=== PATIENT | male | born 1960 | race African-American/Black ===

== ENCOUNTER 2016-08-16 11:31 | Inpatient (IN) | payer OTHER ==
[2016-08-16 12:09] VITALS: BMI 24.4
--- NOTE | 2016-08-16 12:53 | HP ---
CIWA Score - CIWA Score Nausea/Vomitin Muscle Tremors: 3 Anxiety: 2 Agitation: 1-Slight > Activity Paroxysmal Sweats: 2 Orientation: 0-Oriented Tacttile Disturbances: 2-Mild Itch/Numbness/Burn Auditory Disturbances: 1-Very Mild Visual Disturbances: 2-Mild Sensitivity Headache: 0-None Present CIWA-Ar Total Score: 18 Admission ROS BHS - HPI Chief Complaint: "I am here to try to stop drinking and using drugs." Allergies/Adverse Reactions: Allergies Allergy/AdvReac Type Severity Reaction Status Date / Time No Known Allergies Allergy Verified 08/16/16 12:04 History of Present Illness: Pt. is a 56 YO male here to Detox from Alcohol. History of previous Detox admissions. Pt. also uses K2 on a daily basis and occasionally uses Crack Cocaine. Exam Limitations: No Limitations - Ebola screening Have you traveled outside of the country in the last 21 days: No Have you had contact with anyone from an Ebola affected area: No Have you been sick,other than usual withdrawal symptoms: No Do you have a fever: No - Review of Systems Constitutional: Diaphoresis, Malaise, Night Sweats EENT: reports: Blurred Vision, Tinnitus (Occasional - bilateral.), Nose Congestion, Sinus Pressure, Dental Problems (Multiple cavities.) Respiratory: reports: Cough, SOB with Exertion Cardiac: reports: No Symptoms Reported GI: reports: Diarrhea, Nausea, Vomiting : reports: No Symptoms Reported Musculoskeletal: reports: Joint Pain (Pain in Left hip.) Integumentary: reports: No Symptoms Reported Neuro: reports: Numbness (Occasional in Left Upper Back.), Tingling (Occasional in Left Upper Back.), Tremors Endocrine: reports: No Symptoms Reported Hematology: reports: No Symptoms Reported Psychiatric: reports: Judgement Intact, Mood/Affect Appropiate, Orientated x3, Anxious, Depressed Other Systems: Reviewed and Negative Patient History - Patient Medical History Hx Anemia: No Hx Asthma: No Hx Chronic Obstructive Pulmonary Disease (COPD): No Hx Cancer: No Hx Cardiac Disorders: No Hx Congestive Heart Failure: No Hx Hypertension: No Hx Hypercholesterolemia: No Hx Pacemaker: No HX Cerebrovascular Accident: No Hx Seizures: No Hx Dementia: No Hx Diabetes: No Hx Gastrointestinal Disorders: No Hx Liver Disease: No Hx Genitourinary Disorders: No Hx Sexually Transmitted Disorders: Yes (gonerrhea and syphillis 1979; Treated.) Hx Renal Disease (ESRD): No Hx Thyroid Disease: No Hx Human Immunodeficiency Virus (HIV): No (LAST TESTED: 2008: NEGATIVE.) Hx Hepatitis C: No (Never Tested.) Hx Depression: Yes Hx Suicide Attempt: No Hx Bipolar Disorder: No Hx Schizophrenia: Yes (On meds.) - Patient Surgical History Past Surgical History: No Hx Neurologic Surgery: No Hx Cataract Extraction: No Hx Cardiac Surgery: No Hx Lung Surgery: No Hx Breast Surgery: No Hx Breast Biopsy: No Hx Abdominal Surgery: No Hx Appendectomy: No Hx Cholecystectomy: No Hx Genitourinary Surgery: No Hx Section: No Hx Orthopedic Surgery: No Anesthesia Reaction: No - PPD History Previous Implant?: Yes ((+) PPD hx.) Documented Results: Positive w/o proof Implanted On Prior R Admission?: No PPD to be Administered?: No - Reproductive History Patient is a Female of Child Bearing Age (11 -55 yrs old): No (PATIENT IS MALE.) - Smoking Cessation Smoking history: Current every day smoker Have you smoked in the past 12 months: Yes Aproximately how many cigarettes per day: 40 Cigars Per Day: 1 Hx Chewing Tobacco Use: No Initiated information on smoking cessation: Yes 'Breaking Loose' booklet given: 08/16/16 (GIVEN ON UNIT.) - Substance & Tx. History Hx Alcohol Use: Yes Hx Substance Use: Yes Substance Use Type: Marijuana Hx Substance Use Treatment: Yes (Previous Detox Admissions.) - Substances Abused Alcohol Route: Oral Frequency: Daily Amount used: (4) 40OZ bEER, 2 PINTS EJ JYOTI Age of first use: 10 Date of Last Use: 08/15/16 Marijuana/Hashish Route: Smoking Frequency: Daily Amount used: 1-2 Joints (K2) Age of first use: 53 Date of Last Use: 08/15/16 Family Disease History - Family Disease History Family Disease History: Diabetes: Mother (Arthritis.), Brother, Other: Father ( alcohol,), Mother Admission Physical Exam S - Vital Signs Vital Signs: Vital Signs - 24 hr 08/16/16 12:07 Temperature 97.9 F Pulse Rate 92 H Respiratory 18 Rate Blood Pressure 129/74 - Physical General Appearance: Yes: No Apparent Distress, Nourished, Appropriately Dressed , Tremorous HEENTM: Yes: Hearing grossly Normal, Normocephalic, Normal Voice, SHELLY, Pharynx Normal Respiratory: Yes: Chest Non-Tender, Lungs Clear, No Respiratory Distress Neck: Yes: No masses,lesions,Nodules, Supple, Trachea in good position Breast: Yes: Breast Exam Deferred Cardiology: Yes: Regular Rhythm, Regular Rate, S1, S2 Abdominal: Yes: Normal Bowel Sounds, Non Tender, Flat Genitourinary: Yes: Within Normal Limits Back: Yes: Normal Inspection Musculoskeletal: Yes: full range of Motion, Gait Steady Extremities: Yes: Normal Inspection, Normal Range of Motion, Non-Tender, Tremors Neurological: Yes: Fully Oriented, Alert, Normal Mood/Affect, Normal Response Integumentary: Yes: Normal Color, Dry, Warm Lymphatic: Yes: Within Normal Limits - Diagnostic (1) Nicotine dependence Current Visit: Yes Status: Chronic (2) Alcohol dependence with uncomplicated withdrawal Current Visit: Yes Status: Acute (3) Cannabis dependence Current Visit: Yes Status: Acute Cleared for Admission [facility] - Detox or Rehab [facility] Level of Care: Medically Managed Detox Regimen/Protocol: Librium (PATIENT ADVISED TO FOLLOW-UP WITH TODDLER LEAD TEACHER / REHAB MEDICAL PROIVDER AFTER DETOX DISCHARGE FOR GENERAL MEDICAL EVALUATION.) [facility] Breath Alcohol Content Breath Alcohol Content: 0 Urine Drug Screen - Results Drug Screen Negative: Yes
[2016-08-16] MEDS ORDERED: MAGNESIUM HYDROX 2400MG/30ML ORAL SUSPENSION 30 ML CUP PO PRN (13:30)
[2016-08-16] MEDS ORDERED: chlordiazePOXIDE HCL 25 MG CAPSULE PO PRN (13:30)
[2016-08-16] MEDS ORDERED: chlordiazePOXIDE HCL 25 MG CAPSULE PO ONE (13:30)
[2016-08-16] MEDS ORDERED: guaiFENesin/D-METHORPHAN HB 10 ML UNIT-DOSE CUPS PO PRN (13:30)
[2016-08-16] MEDS ORDERED: MENTHOL/PHENOL 1 EACH UD MM PRN (13:30)
[2016-08-16] MEDS ORDERED: P-EPHED 60MG/TRIPROLIDI 2.5MG TABLET PO PRN (13:30)
[2016-08-16] MEDS ORDERED: ACETAMINOPHEN 325 MG TABLET (FP) PO PRN (13:30)
[2016-08-16] MEDS ORDERED: MAG HYDROX/AL HYDROX/SIMETH 30 ML UNIT-DOSE CUP PO PRN (13:30)
[2016-08-16] MEDS ORDERED: LOPERAMIDE HCL 2 MG CAPSULE PO PRN (13:30)
[2016-08-16] MEDS ORDERED: IBUPROFEN 400 MG TABLET (FP) PO PRN (13:30)
[2016-08-16] MEDS ORDERED: MAGNESIUM CITRATE 300 ML BOTTLE PO PRN (13:30)
[2016-08-16] MEDS: chlordiazePOXIDE HCL 25 MG CAPSULE PO SCH ×2 (17:29→22:13)
[2016-08-16] MEDS: NICOTINE POLACRILEX 4 MG GUM BC PRN ×2 (17:31→21:38)
[2016-08-16 17:34] LABS: URINE APPEARANCE CLEAR; URINE BILIRUBIN NEGATIVE (NEGATIVE); URINE BLOOD NEGATIVE (NEGATIVE); URINE COLOR STRAW; URINE GLUCOSE (UA) NEGATIVE (NEGATIVE); URINE KETONE NEGATIVE (NEGATIVE); URINE LEUK ESTERASE NEGATIVE (NEGATIVE); URINE NITRITE NEGATIVE (NEGATIVE); URINE PROTEIN NEGATIVE (NEGATIVE); URINE UROBILINOGEN NEGATIVE E.U./dl (0.2-1.0)
[2016-08-16] MEDS: THIAMINE HCL 100 MG TABLET (FP) PO SCH (22:13)
[2016-08-16] MEDS: diphenhydrAMINE HCL 50 MG CAPSULE PO PRN (22:13)
[2016-08-17] MEDS: NICOTINE POLACRILEX 4 MG GUM BC PRN ×8 (01:12→22:13)
[2016-08-17] MEDS: hydrOXYzine PAMOATE 50 MG CAPSULE (FP) PO PRN (02:23)
[2016-08-17] MEDS: chlordiazePOXIDE HCL 25 MG CAPSULE PO SCH ×4 (05:18→22:12)
--- NOTE | 2016-08-17 09:25 | EKG ---
Test Reason : Blood Pressure : / mmHG Vent. Rate : 082 BPM Atrial Rate : 082 BPM P-R Int : 164 ms QRS Dur : 104 ms QT Int : 418 ms P-R-T Axes : 067 064 017 degrees QTc Int : 488 ms NORMAL SINUS RHYTHM VOLTAGE CRITERIA FOR LEFT VENTRICULAR HYPERTROPHY T WAVE ABNORMALITY, CONSIDER LATERAL ISCHEMIA VS REPOLARIZATION ABNORMALITIES PROLONGED QT ABNORMAL ECG NO PREVIOUS ECGS AVAILABLE Confirmed by SERGE CALDERÓN MD ([id number]) on 08/17/2016 9:24:54 AM Referred By: Confirmed By:SERGE CALDERÓN MD
[2016-08-17 09:58] LABS: ALBUMIN 3.3 g/dl (3.4-5.0); ANION GAP 5 (8-16); CALCIUM 8.6 mg/dL (8.5-10.1); CO2 32 mmol/L (21-32)
--- NOTE | 2016-08-17 10:00 | CONSULT ---
[facility] Psychiatric Consult - Data Date of interview: 08/17/16 Admission source: [facility] Identifying data: This is 56 years ols AA male,father of 2 resides in [place],supported by [facility].Patient admitted to [address] [place] [address] for Alcohol,Cannabis and K2 dependence. Substance Abuse History: REports drinking beer,pint of jesse since 10 yo.Cannabis including K2 since 53 years old(2 joints daily). Medical History: H/O Alcohol induced syncope. Psychiatric History: patient sees psychiatrist since 1996 when he was admitted to [facility] after DOD.Patient was dx with Schizophrenia and started on Thorazine.He reports more that 15 psychiatric hospitalizations.Most recent admisssion was about 2 months ago.Patient has no regular psychiatric follow up , obtaining meds from local ER.Current medications:Li 600 mg po bid and Zyprexa 10 mg po bid. Physical/Sexual Abuse/Trauma History: denies Mental Status Exam - Mental Status Exam Alert and Oriented to: Time, Place, Person Cognitive Function: Grossly Intact Patient Appearance: Unkempt Mood: Sad, Anxious Affect: Mood Congruent, Labile Patient Behavior: Cooperative Speech Pattern: Clear Voice Loudness: Normal Thought Process: Goal Oriented Thought Disorder: Being Controlled Hallucinations: Denies Suicidal Ideation: Denies Homicidal Ideation: Denies Insight/Judgement: Fair Sleep: Fair Appetite: Fair Muscle strength/Tone: Normal Gait/Station: Normal Psychiatric Findings - Problem List ([place] 1, 2,3) (1) Cannabis dependence Current Visit: Yes Status: Chronic (2) Nicotine dependence Current Visit: Yes Status: Chronic (3) Alcohol dependence Current Visit: No Status: Active (4) Weight decreased Current Visit: Yes Status: Active (5) Paranoid schizophrenia Current Visit: Yes Status: Chronic - Initial Treatment Plan Initial Treatment Plan: Continue Zyprexa 0 mg po bid and Li 600 mg po bid. Will monitor porgress.
[2016-08-17 10:04] LABS: ALK PHOS 71 U/L (45-117); BILIRUBIN,TOTAL 0.5 mg/dL (0.2-1.0); GLUCOSE,RANDOM 123 mg/dL (74-106); SGOT/AST 15 U/L (15-37); SGPT/ALT 23 U/L (12-78); TOT PROT 6.2 g/dl (6.4-8.2)
--- NOTE | 2016-08-17 10:04 | PN ---
S CIWA - CIWA Score Nausea/Vomitin-No Nausea/No Vomiting Muscle Tremors: 3 Anxiety: 4-Mod. Anxious/Guarded Agitation: 4-Moderately Restless Paroxysmal Sweats: 3 Orientation: 0-Oriented Tacttile Disturbances: 1-Very Mild Itch/Numbness Auditory Disturbances: 0-None Visual Disturbances: 0-None Headache: 0-None Present CIWA-Ar Total Score: 15 BHS Progress Note (SOAP) Subjective: ANXIETY,TREMORS,SWEATING,INTERRUPTED SLEEP,RESTLESS. Objective: 08/17/16 10:03 Vital Signs - 8 hr 08/17/16 08/17/16 03:30 06:35 Temperature 97.6 F Pulse Rate 78 Respiratory 18 18 Rate Blood Pressure 107/72 Laboratory Last Values Urine Color Straw 08/16/16 11:00 Urine Appearance Clear 08/16/16 11:00 Urine pH 8.0 (5.0-8.0) 08/16/16 11:00 Ur Specific [place] 1.012 (1.001-1.035) 08/16/16 11:00 Urine Protein Negative (NEGATIVE) 08/16/16 11:00 Urine Glucose (UA) Negative (NEGATIVE) 08/16/16 11:00 Urine Ketones Negative (NEGATIVE) 08/16/16 11:00 Urine Blood Negative (NEGATIVE) 08/16/16 11:00 Urine Nitrite Negative (NEGATIVE) 08/16/16 11:00 Urine Bilirubin Negative (NEGATIVE) 08/16/16 11:00 Urine Urobilinogen Negative E.U./dl (0.2-1.0) 08/16/16 11:00 Ur Leukocyte Esterase Negative (NEGATIVE) 08/16/16 11:00 LABS NOTED Assessment: 08/17/16 10:03 WITHDRAWAL SX. Plan: CONTINUE DETOX
[2016-08-17] MEDS: PRENATAL VITAMINS W/ FOLIC ACID TABLET (FP) PO SCH (10:13)
[2016-08-17 10:37] LABS: MCH 23.1 pg (25.7-33.7); MCHC 32.5 g/dl (32.0-35.9); MEAN PLT VOLUME 10.1 fl (7.5-11.1); PLATELET COUNT 144 K/MM3 (134-434); RDW 16.4 % (11.9-15.9)
[2016-08-17] MEDS: LITHIUM CARBONATE 300 MG CAPSULE (FP) PO SCH ×2 (10:57→22:12)
[2016-08-17] MEDS: OLANZapine 10 MG TABLET PO SCH ×2 (10:58→22:12)
[2016-08-17] MEDS: THIAMINE HCL 100 MG TABLET (FP) PO SCH (22:12)
[2016-08-17] MEDS: diphenhydrAMINE HCL 50 MG CAPSULE PO PRN (22:13)
[2016-08-18] MEDS: NICOTINE POLACRILEX 4 MG GUM BC PRN ×7 (02:49→21:04)
[2016-08-18] MEDS: chlordiazePOXIDE HCL 25 MG CAPSULE PO SCH ×2 (05:25→10:17)
[2016-08-18] MEDS: LITHIUM CARBONATE 300 MG CAPSULE (FP) PO SCH ×2 (10:16→22:35)
[2016-08-18] MEDS: OLANZapine 10 MG TABLET PO SCH ×2 (10:16→22:36)
[2016-08-18] MEDS: PRENATAL VITAMINS W/ FOLIC ACID TABLET (FP) PO SCH (10:17)
--- NOTE | 2016-08-18 11:30 | PN ---
S CIWA - CIWA Score Nausea/Vomitin-No Nausea/No Vomiting Muscle Tremors: 3 Anxiety: 3 Agitation: 4-Moderately Restless Paroxysmal Sweats: 3 Orientation: 0-Oriented Tacttile Disturbances: 0-None Auditory Disturbances: 0-None Visual Disturbances: 0-None Headache: 0-None Present CIWA-Ar Total Score: 13 BHS Progress Note (SOAP) Subjective: ANXIETY,TREMORS,SWEATING,INTERRUPTED SLEEP,RESTLESS. Objective: 08/18/16 11:26 Vital Signs - 8 hr 08/18/16 08/18/16 06:17 09:18 Temperature 96.5 F L 96.2 F L Pulse Rate 81 83 Respiratory 18 18 Rate Blood Pressure 102/67 115/75 Laboratory Tests 08/16/16 08/17/16 08/17/16 11:00 08:00 08:00 WBC 7.0 RBC 5.26 Hgb 12.1 Hct 37.4 MCV 71.0 L MCHC 32.5 RDW 16.4 H Plt Count 144 MPV 10.1 Sickle Cell Screen Sodium 139 Potassium 4.3 Chloride 102 Carbon Dioxide 32 Anion Gap 5 L BUN 12 D Creatinine 1.0 Creat Clearance w eGFR > 60 Random Glucose 123 H D Calcium 8.6 Total Bilirubin 0.5 D AST 15 D ALT 23 D Alkaline Phosphatase 71 Total Protein 6.2 L Albumin 3.3 L Urine Color Straw Urine Appearance Clear Urine pH 8.0 Ur Specific [place] 1.012 Urine Protein Negative Urine Glucose (UA) Negative Urine Ketones Negative Urine Blood Negative Urine Nitrite Negative Urine Bilirubin Negative Urine Urobilinogen Negative Ur Leukocyte Esterase Negative RPR Titer 08/17/16 08/17/16 08:00 08:00 WBC RBC Hgb Hct MCV MCHC RDW Plt Count MPV Sickle Cell Screen Negative Sodium Potassium Chloride Carbon Dioxide Anion Gap BUN Creatinine Creat Clearance w eGFR Random Glucose Calcium Total Bilirubin AST ALT Alkaline Phosphatase Total Protein Albumin Urine Color Urine Appearance Urine pH Ur Specific [place] Urine Protein Urine Glucose (UA) Urine Ketones Urine Blood Urine Nitrite Urine Bilirubin Urine Urobilinogen Ur Leukocyte Esterase RPR Titer Nonreactive LABS NOTED Assessment: 08/18/16 11:30 WITHDRAWAL SX. Plan: CONTINUE DETOX
[2016-08-18] MEDS: chlordiazePOXIDE 5 MG CAPSULE PO SCH ×2 (17:11→22:36)
[2016-08-18] MEDS: hydrOXYzine PAMOATE 50 MG CAPSULE (FP) PO PRN (17:39)
[2016-08-18] MEDS: THIAMINE HCL 100 MG TABLET (FP) PO SCH (22:35)
[2016-08-18] MEDS: diphenhydrAMINE HCL 50 MG CAPSULE PO PRN (22:38)
[2016-08-19] MEDS: NICOTINE POLACRILEX 4 MG GUM BC PRN ×9 (02:35→22:19)
[2016-08-19] MEDS: chlordiazePOXIDE 5 MG CAPSULE PO SCH ×2 (05:26→10:20)
[2016-08-19] MEDS: PRENATAL VITAMINS W/ FOLIC ACID TABLET (FP) PO SCH (10:20)
[2016-08-19] MEDS: LITHIUM CARBONATE 300 MG CAPSULE (FP) PO SCH ×2 (10:21→22:16)
[2016-08-19] MEDS: OLANZapine 10 MG TABLET PO SCH ×2 (10:21→22:16)
[2016-08-19] MEDS: hydrOXYzine PAMOATE 50 MG CAPSULE (FP) PO PRN (13:58)
--- NOTE | 2016-08-19 15:23 | PN ---
BHS Progress Note (SOAP) Subjective: SWEATING,INTERRUPTED SLEEP,RESTLESS Objective: 08/19/16 15:22 Vital Signs - 8 hr 08/19/16 08/19/16 09:49 14:17 Temperature 98.1 F 98.8 F Pulse Rate 84 81 Respiratory 18 18 Rate Blood Pressure 112/70 112/76 Laboratory Last Values WBC 7.0 K/mm3 (4.0-10.0) 08/17/16 08:00 RBC 5.26 M/mm3 (4.00-5.60) 08/17/16 08:00 Hgb 12.1 GM/dL (11.7-16.9) 08/17/16 08:00 Hct 37.4 % (35.4-49) 08/17/16 08:00 MCV 71.0 fl (80-96) L 08/17/16 08:00 MCHC 32.5 g/dl (32.0-35.9) 08/17/16 08:00 RDW 16.4 % (11.9-15.9) H 08/17/16 08:00 Plt Count 144 K/MM3 (134-434) 08/17/16 08:00 MPV 10.1 fl (7.5-11.1) 08/17/16 08:00 Sickle Cell Screen Negative (NEGATIVE) 08/17/16 08:00 Sodium 139 mmol/L (136-145) 08/17/16 08:00 Potassium 4.3 mmol/L (3.5-5.1) 08/17/16 08:00 Chloride 102 mmol/L (98-107) 08/17/16 08:00 Carbon Dioxide 32 mmol/L (21-32) 08/17/16 08:00 Anion Gap 5 (8-16) L 08/17/16 08:00 BUN 12 mg/dL (7-18) D 08/17/16 08:00 Creatinine 1.0 mg/dL (0.7-1.3) 08/17/16 08:00 Creat Clearance w eGFR > 60 (>60) 08/17/16 08:00 Random Glucose 123 mg/dL (74-106) H D 08/17/16 08:00 Calcium 8.6 mg/dL (8.5-10.1) 08/17/16 08:00 Total Bilirubin 0.5 mg/dL (0.2-1.0) D 08/17/16 08:00 AST 15 U/L (15-37) D 08/17/16 08:00 ALT 23 U/L (12-78) D 08/17/16 08:00 Alkaline Phosphatase 71 U/L (45-117) 08/17/16 08:00 Total Protein 6.2 g/dl (6.4-8.2) L 08/17/16 08:00 Albumin 3.3 g/dl (3.4-5.0) L 08/17/16 08:00 Urine Color Straw 08/16/16 11:00 Urine Appearance Clear 08/16/16 11:00 Urine pH 8.0 (5.0-8.0) 08/16/16 11:00 Ur Specific [place] 1.012 (1.001-1.035) 08/16/16 11:00 Urine Protein Negative (NEGATIVE) 08/16/16 11:00 Urine Glucose (UA) Negative (NEGATIVE) 08/16/16 11:00 Urine Ketones Negative (NEGATIVE) 08/16/16 11:00 Urine Blood Negative (NEGATIVE) 08/16/16 11:00 Urine Nitrite Negative (NEGATIVE) 08/16/16 11:00 Urine Bilirubin Negative (NEGATIVE) 08/16/16 11:00 Urine Urobilinogen Negative E.U./dl (0.2-1.0) 08/16/16 11:00 Ur Leukocyte Esterase Negative (NEGATIVE) 08/16/16 11:00 RPR Titer Nonreactive (NONREACTIVE) 08/17/16 08:00 LABS NOTED Assessment: 08/19/16 15:22 WITHDRAWAL SX. Plan: CONTINUE DETOX
[2016-08-19] MEDS: chlordiazePOXIDE HCL 10 MG CAPSULE PO SCH ×2 (17:45→22:17)
[2016-08-19] MEDS: THIAMINE HCL 100 MG TABLET (FP) PO SCH (22:16)
[2016-08-19] MEDS: diphenhydrAMINE HCL 50 MG CAPSULE PO PRN (22:17)
[2016-08-20] MEDS: NICOTINE POLACRILEX 4 MG GUM BC PRN ×3 (02:41→07:31)
[2016-08-20] MEDS: chlordiazePOXIDE HCL 10 MG CAPSULE PO SCH (05:59)
[2016-08-20 06:15] VITALS: BP 111/75; PULSE 77; TEMP 97.3
--- NOTE | 2016-08-20 10:29 | DS ---
[facility] Detox Discharge Summary Admission Date: 08/16/16 Discharge Date: 08/20/16 - History Present History: Alcohol Dependence, Cannabis Dependence Pertinent Past History: PARANOID SCHIZOPHRENIA - Physical Exam Results Vital Signs: Vital Signs Temperature 97.3 F L 08/20/16 06:15 Pulse Rate 77 08/20/16 06:15 Respiratory Rate 16 08/20/16 06:15 Blood Pressure 111/75 08/20/16 06:15 O2 Sat by Pulse Oximetry (%) Pertinent Admission Physical Exam Findings: WITHDRAWAL SX. Laboratory Last Values WBC 7.0 K/mm3 (4.0-10.0) 08/17/16 08:00 RBC 5.26 M/mm3 (4.00-5.60) 08/17/16 08:00 Hgb 12.1 GM/dL (11.7-16.9) 08/17/16 08:00 Hct 37.4 % (35.4-49) 08/17/16 08:00 MCV 71.0 fl (80-96) L 08/17/16 08:00 MCHC 32.5 g/dl (32.0-35.9) 08/17/16 08:00 RDW 16.4 % (11.9-15.9) H 08/17/16 08:00 Plt Count 144 K/MM3 (134-434) 08/17/16 08:00 MPV 10.1 fl (7.5-11.1) 08/17/16 08:00 Sickle Cell Screen Negative (NEGATIVE) 08/17/16 08:00 Sodium 139 mmol/L (136-145) 08/17/16 08:00 Potassium 4.3 mmol/L (3.5-5.1) 08/17/16 08:00 Chloride 102 mmol/L (98-107) 08/17/16 08:00 Carbon Dioxide 32 mmol/L (21-32) 08/17/16 08:00 Anion Gap 5 (8-16) L 08/17/16 08:00 BUN 12 mg/dL (7-18) D 08/17/16 08:00 Creatinine 1.0 mg/dL (0.7-1.3) 08/17/16 08:00 Creat Clearance w eGFR > 60 (>60) 08/17/16 08:00 Random Glucose 123 mg/dL (74-106) H D 08/17/16 08:00 Calcium 8.6 mg/dL (8.5-10.1) 08/17/16 08:00 Total Bilirubin 0.5 mg/dL (0.2-1.0) D 08/17/16 08:00 AST 15 U/L (15-37) D 08/17/16 08:00 ALT 23 U/L (12-78) D 08/17/16 08:00 Alkaline Phosphatase 71 U/L (45-117) 08/17/16 08:00 Total Protein 6.2 g/dl (6.4-8.2) L 08/17/16 08:00 Albumin 3.3 g/dl (3.4-5.0) L 08/17/16 08:00 Urine Color Straw 08/16/16 11:00 Urine Appearance Clear 08/16/16 11:00 Urine pH 8.0 (5.0-8.0) 08/16/16 11:00 Ur Specific [place] 1.012 (1.001-1.035) 08/16/16 11:00 Urine Protein Negative (NEGATIVE) 08/16/16 11:00 Urine Glucose (UA) Negative (NEGATIVE) 08/16/16 11:00 Urine Ketones Negative (NEGATIVE) 08/16/16 11:00 Urine Blood Negative (NEGATIVE) 08/16/16 11:00 Urine Nitrite Negative (NEGATIVE) 08/16/16 11:00 Urine Bilirubin Negative (NEGATIVE) 08/16/16 11:00 Urine Urobilinogen Negative E.U./dl (0.2-1.0) 08/16/16 11:00 Ur Leukocyte Esterase Negative (NEGATIVE) 08/16/16 11:00 RPR Titer Nonreactive (NONREACTIVE) 08/17/16 08:00 LABS NOTED - Treatment Hospital Course: Detox Protocol Followed, Detoxed Safely, Responded well, Discharged Condition Good, Rehab Referral Accepted - Medication Discharge Medications: Ambulatory Orders [place] Carbonate [Eskalith -] 600 mg PO BID 04/13/16 Olanzapine [Zyprexa -] 10 mg PO DAILY 08/16/16 Olanzapine [Zyprexa] 20 mg PO HS 08/16/16 [place] Carbonate [Eskalith -] 600 mg PO BID #120 capsule 08/17/16 Olanzapine [ZyPREXA -] 10 mg PO BID #60 tablet 08/17/16 - Diagnosis (1) Alcohol dependence with uncomplicated withdrawal Current Visit: Yes Status: Acute (2) Cannabis dependence Current Visit: Yes Status: Chronic (3) Nicotine dependence Current Visit: Yes Status: Chronic (4) Paranoid schizophrenia Current Visit: Yes Status: Chronic - AMA Did Patient Leave Against Medical Advice: No
== END 2016-08-20 09:15 | disposition home or self-care (01) | DRG 897 ==
LOC: YASAS 11:31 → Y3N 13:59
PROVIDERS: ADMIT Internal Medicine; ATTEND Internal Medicine
PROC: HZ2ZZZZ Detoxification Services for Substance Abuse Treatment (ICD-10-PCS; principal; 2016-08-16)
DX: F10.230 Alcohol dependence with withdrawal, uncomplicated (principal); F20.0 Paranoid schizophrenia; F12.20 Cannabis dependence, uncomplicated; F17.210 Nicotine dependence, cigarettes, uncomplicated; Z86.79 Personal history of other diseases of the circulatory system; Z87.898 Personal history of other specified conditions; Z87.438 Personal history of other diseases of male genital organs
CPT/HCPCS: 36415; 71020-TC; 80053; 81003; 85027; 85660; 86593; 93005; 93010

== ENCOUNTER 2016-10-02 12:42 | Inpatient (IN) | payer OTHER ==
[2016-10-02 19:02] VITALS: BMI 23.7
--- NOTE | 2016-10-02 20:43 | HP ---
CIWA Score - CIWA Score Nausea/Vomitin-Mild Nausea/No Vomiting Muscle Tremors: 4-Moderate,w/Arms Extend Anxiety: 4-Mod. Anxious/Guarded Agitation: 4-Moderately Restless Paroxysmal Sweats: 1-Minimal Palms Moist Orientation: 3-Disoriented Date>2 days Tacttile Disturbances: 0-None Auditory Disturbances: 0-None Visual Disturbances: 0-None Headache: 0-None Present CIWA-Ar Total Score: 17 Admission ROS BHS - HPI Chief Complaint: WITHDRAWAL SX Allergies/Adverse Reactions: Allergies Allergy/AdvReac Type Severity Reaction Status Date / Time No Known Allergies Allergy Verified 10/02/16 20:48 History of Present Illness: 56 YEARS OLD MALE WITH LONG HISTORY OF ALCOHOL NICOTINE DEPENDENCE, DENIES MEDICAL ISSUE HAS SCHIZOPHRENIA IS ADMITTED TO DETOX Exam Limitations: No Limitations - Ebola screening Have you traveled outside of the country in the last 21 days: No Have you had contact with anyone from an Ebola affected area: No Have you been sick,other than usual withdrawal symptoms: No Do you have a fever: No - Review of Systems Constitutional: Chills, Changes in sleep, Weight Stable EENT: reports: Dental Problems (POOR DENTITION), Other (READING EYE GLASSES) Respiratory: reports: SOB with Exertion Cardiac: reports: No Symptoms Reported GI: reports: Nausea, Poor Fluid Intake, Abdominal cramping : reports: No Symptoms Reported Musculoskeletal: reports: Joint Pain (LEFT SHOULDER) Integumentary: reports: No Symptoms Reported Neuro: reports: Tremors Endocrine: reports: No Symptoms Reported Hematology: reports: No Symptoms Reported Psychiatric: reports: Judgement Intact Other Systems: Reviewed and Negative Patient History - Patient Medical History Hx Anemia: No Hx Asthma: No Hx Chronic Obstructive Pulmonary Disease (COPD): No Hx Cancer: No Hx Cardiac Disorders: No Hx Congestive Heart Failure: No Hx Hypertension: No Hx Hypercholesterolemia: No Hx Pacemaker: No HX Cerebrovascular Accident: No Hx Seizures: No Hx Dementia: No Hx Diabetes: No Hx Gastrointestinal Disorders: No Hx Liver Disease: No Hx Genitourinary Disorders: No Hx Sexually Transmitted Disorders: Yes (gonerrhea and syphillis 1979; Treated.) Hx Renal Disease (ESRD): No Hx Thyroid Disease: No Hx Human Immunodeficiency Virus (HIV): No (LAST TESTED: 2008: NEGATIVE.) Hx Hepatitis C: No (Never Tested.) Hx Depression: No Hx Suicide Attempt: No Hx Bipolar Disorder: No Hx Schizophrenia: Yes (On meds.) - Patient Surgical History Past Surgical History: No Hx Neurologic Surgery: No Hx Cataract Extraction: No Hx Cardiac Surgery: No Hx Lung Surgery: No Hx Breast Surgery: No Hx Breast Biopsy: No Hx Abdominal Surgery: No Hx Appendectomy: No Hx Cholecystectomy: No Hx Genitourinary Surgery: No Hx Orthopedic Surgery: No - PPD History Previous Implant?: Yes Documented Results: Positive w/proof Implanted On Prior [facility] Admission?: No PPD to be Administered?: No - Smoking Cessation Smoking history: Current every day smoker Have you smoked in the past 12 months: Yes Aproximately how many cigarettes per day: 40 Cigars Per Day: 1 Hx Chewing Tobacco Use: No Initiated information on smoking cessation: Yes 'Breaking Loose' booklet given: 10/02/16 - Substance & Tx. History Hx Alcohol Use: Yes Hx Substance Use: No Substance Use Type: Alcohol Hx Substance Use Treatment: Yes - Substances Abused Alcohol Route: Oral Frequency: Daily Amount used: 40OZX6 BEER/ JYOTI PINT Age of first use: 10 Date of Last Use: 10/02/16 Family Disease History - Family Disease History Family Disease History: Diabetes: Mother (Arthritis.), Brother, Other: Father ( alcohol,), Mother Admission Physical Exam S - Vital Signs Vital Signs: Vital Signs - 24 hr 10/02/16 19:00 Temperature 96 F L Pulse Rate 84 Respiratory 20 Rate Blood Pressure 129/71 - Physical General Appearance: Yes: Appropriately Dressed, Mild Distress, Thin, Tremorous, Irritable, Sweating, Anxious HEENTM: Yes: Hearing grossly Normal, Normal ENT Inspection, Normocephalic, Normal Voice Respiratory: Yes: Chest Non-Tender, Lungs Clear, Normal Breath Sounds, No Respiratory Distress, No Accessory Muscle Use Neck: Yes: Supple, Trachea in good position Breast: Yes: Breasts Symetrical Cardiology: Yes: Regular Rhythm, Regular Rate, S1, S2 Abdominal: Yes: Non Tender, Soft Genitourinary: Yes: Within Normal Limits Back: Yes: Normal Inspection Musculoskeletal: Yes: full range of Motion, Gait Steady, Muscle Pain (LEFT SHOULDER) Extremities: Yes: Normal Range of Motion, Non-Tender, Tremors Neurological: Yes: Alert, Motor Strength 5/5, Normal Response, Depressed Affect Integumentary: Yes: Warm Lymphatic: Yes: Within Normal Limits - Diagnostic (1) Weight decreased Current Visit: Yes Status: Active (2) shizophrenia Current Visit: Yes Status: Suspected (3) Alcohol dependence with uncomplicated withdrawal Current Visit: Yes Status: Acute (4) Nicotine dependence Current Visit: Yes Status: Acute (5) Positive PPD, treated Current Visit: Yes Status: Resolved Cleared for Admission S - Detox or Rehab S Level of Care: Medically Managed Detox Regimen/Protocol: Librium S Breath Alcohol Content Breath Alcohol Content: 0 Urine Drug Screen - Results Drug Screen Negative: Yes
[2016-10-02] MEDS ORDERED: diphenhydrAMINE HCL 50 MG CAPSULE PO PRN (20:50)
[2016-10-02] MEDS ORDERED: ACETAMINOPHEN 325 MG TABLET (FP) PO PRN (20:50)
[2016-10-02] MEDS ORDERED: LOPERAMIDE HCL 2 MG CAPSULE PO PRN (20:50)
[2016-10-02] MEDS ORDERED: MAGNESIUM CITRATE 300 ML BOTTLE PO PRN (20:50)
[2016-10-02] MEDS ORDERED: IBUPROFEN 400 MG TABLET (FP) PO PRN (20:50)
[2016-10-02] MEDS ORDERED: guaiFENesin/D-METHORPHAN HB 10 ML UNIT-DOSE CUPS PO PRN (20:50)
[2016-10-02] MEDS ORDERED: MAG HYDROX/AL HYDROX/SIMETH 30 ML UNIT-DOSE CUP PO PRN (20:50)
[2016-10-02] MEDS ORDERED: MAGNESIUM HYDROX 2400MG/30ML ORAL SUSPENSION 30 ML CUP PO PRN (20:50)
[2016-10-02] MEDS ORDERED: P-EPHED 60MG/TRIPROLIDI 2.5MG TABLET PO PRN (20:50)
[2016-10-02] MEDS ORDERED: hydrOXYzine PAMOATE 50 MG CAPSULE (FP) PO PRN (20:50)
[2016-10-02] MEDS ORDERED: MENTHOL/PHENOL 1 EACH UD MM PRN (20:50)
[2016-10-02] MEDS ORDERED: chlordiazePOXIDE HCL 25 MG CAPSULE PO PRN (20:50)
[2016-10-02] MEDS ORDERED: COLLOIDAL OATMEAL 1 BAR EACH TP PRN (20:52)
[2016-10-02] MEDS: chlordiazePOXIDE HCL 25 MG CAPSULE PO SCH (22:33)
[2016-10-02] MEDS: THIAMINE HCL 100 MG TABLET (FP) PO SCH (22:34)
[2016-10-02] MEDS: NICOTINE POLACRILEX 4 MG GUM BC PRN (22:37)
[2016-10-02 23:13] LABS: URINE APPEARANCE CLEAR; URINE BILIRUBIN NEGATIVE (NEGATIVE); URINE BLOOD NEGATIVE (NEGATIVE); URINE COLOR LTYELLOW; URINE GLUCOSE (UA) NEGATIVE (NEGATIVE); URINE KETONE NEGATIVE (NEGATIVE); URINE LEUK ESTERASE NEGATIVE (NEGATIVE); URINE NITRITE NEGATIVE (NEGATIVE); URINE PROTEIN NEGATIVE (NEGATIVE); URINE UROBILINOGEN NEGATIVE E.U./dl (0.2-1.0)
[2016-10-02] MEDS: MINERAL OIL/PETROLAT/WATER TOPICAL CREAM 113 GM JAR TP SCH (23:50)
[2016-10-03] MEDS: chlordiazePOXIDE HCL 25 MG CAPSULE PO SCH ×4 (05:22→22:30)
[2016-10-03] MEDS: NICOTINE POLACRILEX 4 MG GUM BC PRN ×5 (06:29→22:31)
--- NOTE | 2016-10-03 10:12 | PN ---
S CIWA - CIWA Score Nausea/Vomitin Muscle Tremors: 3 Anxiety: 3 Agitation: 3 Paroxysmal Sweats: 1-Minimal Palms Moist Orientation: 0-Oriented Tacttile Disturbances: 1-Very Mild Itch/Numbness Auditory Disturbances: 1-Very Mild Visual Disturbances: 1-Very Mild Sensitivity Headache: 2-Mild CIWA-Ar Total Score: 18 S Progress Note (SOAP) Subjective: ALERT,IRRITABLE,ANXIOUS,INTERRUPTED SLEEP,TREMOR Objective: 10/03/16 10:07 Vital Signs Temperature 96.3 F L 10/03/16 06:25 Pulse Rate 73 10/03/16 06:25 Respiratory Rate 18 10/03/16 06:25 Blood Pressure 115/70 10/03/16 06:25 O2 Sat by Pulse Oximetry (%) EKG NSR INVERTED T IN 2,3,AVF,V3 TO V6 NO CHEST PAIN,NO SOB,NO DIZZINESS Laboratory Last Values Urine Color Ltyellow 10/02/16 21:09 Urine Appearance Clear 10/02/16 21:09 Urine pH 6.0 (5.0-8.0) D 10/02/16 21:09 Ur Specific [place] 1.017 (1.001-1.035) 10/02/16 21:09 Urine Protein Negative (NEGATIVE) 10/02/16 21:09 Urine Glucose (UA) Negative (NEGATIVE) 10/02/16 21:09 Urine Ketones Negative (NEGATIVE) 10/02/16 21:09 Urine Blood Negative (NEGATIVE) 10/02/16 21:09 Urine Nitrite Negative (NEGATIVE) 10/02/16 21:09 Urine Bilirubin Negative (NEGATIVE) 10/02/16 21:09 Urine Urobilinogen Negative E.U./dl (0.2-1.0) 10/02/16 21:09 Ur Leukocyte Esterase Negative (NEGATIVE) 10/02/16 21:09 LABS PENDING Assessment: 10/03/16 10:11 WITHDRAWAL SYMPTOM Plan: CONTINUE DETOX
[2016-10-03] MEDS: NICOTINE 21 MG/24 HOURS TOPICAL PATCH TD SCH (10:28)
[2016-10-03] MEDS: ASPIRIN 81 MG CHEWABLE TABLETS PO SCH (10:28)
[2016-10-03] MEDS: PRENATAL VITAMINS W/ FOLIC ACID TABLET (FP) PO SCH (10:28)
[2016-10-03 11:21] LABS: ALBUMIN 3.3 g/dl (3.4-5.0); ANION GAP 8 (8-16); CO2 29 mmol/L (21-32); GLUCOSE,RANDOM 125 mg/dL (74-106); SGOT/AST 12 U/L (15-37); SGPT/ALT 14 U/L (12-78)
[2016-10-03 11:23] LABS: ALK PHOS 85 U/L (45-117); BILIRUBIN,TOTAL 0.2 mg/dL (0.2-1.0); CALCIUM 8.3 mg/dL (8.5-10.1)
[2016-10-03 11:25] LABS: MCH 23.2 pg (25.7-33.7); MCHC 32.3 g/dl (32.0-35.9); MEAN CELL VOLUME 72.1 fl (80-96); PLATELET COUNT 121 K/MM3 (134-434); RDW 16.5 % (11.9-15.9); WHITE BLOOD COUNT 4.3 K/mm3 (4.0-10.0)
--- NOTE | 2016-10-03 15:52 | CONSULT ---
[facility] Psychiatric Consult - Data Date of interview: 10/03/16 Admission source: [facility] Identifying data: Readmission to [facility] for this 56 y/o AA male seeking detox treatment on for alcohol,cocaine (crack) and marijuana (K2) dependence.Patient is single without children,domiciled,unemployed and supported on SSI benefits. Substance Abuse History: - Smoking Cessation. Smoking history: Current every day smoker. Have you smoked in the past 12 months: Yes. Aproximately how many cigarettes per day: 40. Cigars Per Day: 1. Hx Chewing Tobacco Use: No. Initiated information on smoking cessation: Yes. 'Breaking Loose' booklet given : 10/02/16. - Substance & Tx. History. Hx Alcohol Use: Yes. Hx Substance Use : No. Substance Use Type: Alcohol. Hx Substance Use Treatment: Yes. - Substances Abused. Alcohol. Route: Oral. Frequency: Daily. Amount used: 40OZX6 BEER/ JYOTI PINT. Age of first use: 10. Date of Last Use: 10/02/16. Confirmed by the patient in this interview. Psychiatric History: First contact with Psychiatry was in 1996 (committment to [facility]) after a suicide attempt via overdose.DOD.Diagnosed with Schizophrenia.History of multiple psychiatric hospitalizations.Mr Lanza states that he does not go to [facility] clinics.He uses emergency room settings for refills of medications.Patient informs that he is currently on zyprexa 20 mg po hs (confirmed by pharmacy claims of 09/30/16). Physical/Sexual Abuse/Trauma History: Patient denies. Additional Comment: Drug Screen is negative. Mental Status Exam - Mental Status Exam Alert and Oriented to: Time, Place, Person Cognitive Function: Good Patient Appearance: Well Groomed Mood: Hopeful, Euthymic Affect: Normal Range Patient Behavior: Appropriate, Cooperative Speech Pattern: Clear Voice Loudness: Normal Thought Process: Goal Oriented Thought Disorder: Not Present Hallucinations: Denies Suicidal Ideation: Denies Homicidal Ideation: Denies Insight/Judgement: Poor Sleep: Well Appetite: Good Muscle strength/Tone: Normal Gait/Station: Normal Psychiatric Findings - Problem List ([place] 1, 2,3) (1) Alcohol dependence with uncomplicated withdrawal Current Visit: Yes Status: Acute (2) Cannabis dependence Current Visit: Yes Status: Acute (3) Nicotine dependence Current Visit: Yes Status: Acute (4) Paranoid schizophrenia Current Visit: Yes Status: Chronic - Initial Treatment Plan Initial Treatment Plan: Psychoeducation.Detoxification.Medication : zyprexa 20 mg po hs.Patient made aware of risk of metabolic syndrome,sedation and vascular issues.He agrees with this plan of care.Observation.No scripts needed at discharge.
[2016-10-03] MEDS: OLANZapine 10 MG TABLET PO SCH (22:29)
[2016-10-03] MEDS: THIAMINE HCL 100 MG TABLET (FP) PO SCH (22:30)
[2016-10-03] MEDS: MINERAL OIL/PETROLAT/WATER TOPICAL CREAM 113 GM JAR TP SCH (22:31)
[2016-10-04] MEDS: NICOTINE POLACRILEX 4 MG GUM BC PRN ×10 (00:42→21:36)
[2016-10-04] MEDS: chlordiazePOXIDE HCL 25 MG CAPSULE PO SCH ×3 (05:13→17:21)
[2016-10-04] MEDS: NICOTINE 21 MG/24 HOURS TOPICAL PATCH TD SCH (10:47)
[2016-10-04] MEDS: ASPIRIN 81 MG CHEWABLE TABLETS PO SCH (10:47)
[2016-10-04] MEDS: PRENATAL VITAMINS W/ FOLIC ACID TABLET (FP) PO SCH (10:47)
--- NOTE | 2016-10-04 11:15 | PN ---
[facility] CIWA - CIWA Score Nausea/Vomitin Muscle Tremors: 3 Anxiety: 3 Agitation: 2 Paroxysmal Sweats: 1-Minimal Palms Moist Orientation: 0-Oriented Tacttile Disturbances: 1-Very Mild Itch/Numbness Auditory Disturbances: 1-Very Mild Visual Disturbances: 1-Very Mild Sensitivity Headache: 2-Mild CIWA-Ar Total Score: 17 BHS Progress Note (SOAP) Subjective: ALERT,IRRITABLE,ANXIOUS,INTERRUPTED SLEEP,INTERRUPTED SLEEP Objective: 10/04/16 11:13 Vital Signs Temperature 97 F L 10/04/16 09:48 Pulse Rate 75 10/04/16 09:48 Respiratory Rate 18 10/04/16 09:48 Blood Pressure 145/67 10/04/16 09:48 O2 Sat by Pulse Oximetry (%) 10/04/16 11:13 Laboratory Last Values WBC 4.3 K/mm3 (4.0-10.0) D 10/03/16 08:00 RBC 5.22 M/mm3 (4.00-5.60) 10/03/16 08:00 Hgb 12.1 GM/dL (11.7-16.9) 10/03/16 08:00 Hct 37.6 % (35.4-49) 10/03/16 08:00 MCV 72.1 fl (80-96) L 10/03/16 08:00 MCHC 32.3 g/dl (32.0-35.9) 10/03/16 08:00 RDW 16.5 % (11.9-15.9) H 10/03/16 08:00 Plt Count 121 K/MM3 (134-434) L 10/03/16 08:00 MPV 10.0 fl (7.5-11.1) 10/03/16 08:00 Sodium 141 mmol/L (136-145) 10/03/16 08:00 Potassium 4.1 mmol/L (3.5-5.1) 10/03/16 08:00 Chloride 104 mmol/L (98-107) 10/03/16 08:00 Carbon Dioxide 29 mmol/L (21-32) 10/03/16 08:00 Anion Gap 8 (8-16) 10/03/16 08:00 BUN 14 mg/dL (7-18) 10/03/16 08:00 Creatinine 1.0 mg/dL (0.7-1.3) 10/03/16 08:00 Creat Clearance w eGFR > 60 (>60) 10/03/16 08:00 Random Glucose 125 mg/dL (74-106) H 10/03/16 08:00 Calcium 8.3 mg/dL (8.5-10.1) L 10/03/16 08:00 Total Bilirubin 0.2 mg/dL (0.2-1.0) D 10/03/16 08:00 AST 12 U/L (15-37) L 10/03/16 08:00 ALT 14 U/L (12-78) D 10/03/16 08:00 Alkaline Phosphatase 85 U/L (45-117) 10/03/16 08:00 Total Protein 6.0 g/dl (6.4-8.2) L 10/03/16 08:00 Albumin 3.3 g/dl (3.4-5.0) L 10/03/16 08:00 Urine Color Ltyellow 10/02/16 21:09 Urine Appearance Clear 10/02/16 21:09 Urine pH 6.0 (5.0-8.0) D 10/02/16 21:09 Ur Specific [place] 1.017 (1.001-1.035) 10/02/16 21:09 Urine Protein Negative (NEGATIVE) 10/02/16 21:09 Urine Glucose (UA) Negative (NEGATIVE) 10/02/16 21:09 Urine Ketones Negative (NEGATIVE) 10/02/16 21:09 Urine Blood Negative (NEGATIVE) 10/02/16 21:09 Urine Nitrite Negative (NEGATIVE) 10/02/16 21:09 Urine Bilirubin Negative (NEGATIVE) 10/02/16 21:09 Urine Urobilinogen Negative E.U./dl (0.2-1.0) 10/02/16 21:09 Ur Leukocyte Esterase Negative (NEGATIVE) 10/02/16 21:09 RPR Titer Nonreactive (NONREACTIVE) 10/03/16 08:00 Assessment: 10/04/16 11:14 WITHDRAWAL SYMPTOM Plan: CONTINUE DETOX,BGM MONITORING,INITIAL GLUCOSE IS 125
[2016-10-04] MEDS: TOLNAFTATE 1% CREAM 15 GM TUBE TP SCH ×2 (12:30→22:31)
[2016-10-04] MEDS: VITAMINS A AND D TOPICAL OINTMENT 60 GM TUBE TP SCH ×3 (13:14→23:20)
[2016-10-04] MEDS: chlordiazePOXIDE 5 MG CAPSULE PO SCH (22:28)
[2016-10-04] MEDS: THIAMINE HCL 100 MG TABLET (FP) PO SCH (22:28)
[2016-10-04] MEDS: OLANZapine 10 MG TABLET PO SCH (22:28)
--- NOTE | 2016-10-04 22:32 | EKG ---
Test Reason : Blood Pressure : / mmHG Vent. Rate : 061 BPM Atrial Rate : 061 BPM P-R Int : 202 ms QRS Dur : 106 ms QT Int : 470 ms P-R-T Axes : 058 060 226 degrees QTc Int : 473 ms NORMAL SINUS RHYTHM with prolonged AV conduction MODERATE VOLTAGE CRITERIA FOR LVH, MAY BE NORMAL VARIANT MARKED T WAVE ABNORMALITY, CONSIDER ANTEROLATERAL ISCHEMIA PROLONGED QT ABNORMAL ECG WHEN COMPARED WITH ECG OF 02-OCT-2016 22:08, NO SIGNIFICANT CHANGE WAS FOUND Confirmed by KORI JOSEPH MD ([id number]) on 10/04/2016 10:31:50 PM Referred By: Confirmed By:KORI JOSEPH MD
[2016-10-04] MEDS: MINERAL OIL/PETROLAT/WATER TOPICAL CREAM 113 GM JAR TP SCH (22:33)
--- NOTE | 2016-10-04 22:35 | EKG ---
Test Reason : Blood Pressure : / mmHG Vent. Rate : 062 BPM Atrial Rate : 062 BPM P-R Int : 200 ms QRS Dur : 108 ms QT Int : 470 ms P-R-T Axes : 067 070 258 degrees QTc Int : 477 ms NORMAL SINUS RHYTHM with prolonged AV conduction MODERATE VOLTAGE CRITERIA FOR LVH, MAY BE NORMAL VARIANT MARKED T WAVE ABNORMALITY, CONSIDER ANTEROLATERAL ISCHEMIA PROLONGED QT ABNORMAL ECG WHEN COMPARED WITH ECG OF 16-AUG-2016 16:40, [place] INTERVAL HAS INCREASED T WAVE INVERSION MORE EVIDENT IN INFERIOR LEADS AND LATERAL LEADS Confirmed by OPAL MERCADO, KORI ([id number]) on 10/04/2016 10:34:41 PM Referred By: Confirmed By:KORI JOSEPH MD
[2016-10-05] MEDS: NICOTINE POLACRILEX 4 MG GUM BC PRN ×4 (00:01→08:33)
[2016-10-05] MEDS: chlordiazePOXIDE 5 MG CAPSULE PO SCH (05:11)
[2016-10-05] MEDS: VITAMINS A AND D TOPICAL OINTMENT 60 GM TUBE TP SCH (05:36)
[2016-10-05 10:12] VITALS: BP 127/79; PULSE 86; TEMP 97
--- NOTE | 2016-10-05 10:35 | DS ---
[facility] Detox Discharge Summary Admission Date: 10/02/16 Discharge Date: 10/05/16 (i need to go to welfare office) - History Present History: Alcohol Dependence, Cannabis Dependence - Physical Exam Results Vital Signs: Vital Signs Temperature 97 F L 10/05/16 10:12 Pulse Rate 86 10/05/16 10:12 Respiratory Rate 18 10/05/16 10:12 Blood Pressure 127/79 10/05/16 10:12 O2 Sat by Pulse Oximetry (%) - Medication Discharge Medications: Ambulatory Orders Gibbs Carbonate [Eskalith -] 600 mg PO BID 04/13/16 Olanzapine [Zyprexa -] 10 mg PO DAILY 08/16/16 Olanzapine [Zyprexa] 20 mg PO HS 08/16/16 Gibbs Carbonate [Eskalith -] 600 mg PO BID #120 capsule 08/17/16 Olanzapine [ZyPREXA -] 10 mg PO BID #60 tablet 08/17/16 - Diagnosis (1) Weight decreased Current Visit: Yes Status: Active (2) Alcohol dependence with uncomplicated withdrawal Current Visit: Yes Status: Chronic (3) Cannabis dependence Current Visit: Yes Status: Chronic (4) Nicotine dependence Current Visit: Yes Status: Chronic (5) Paranoid schizophrenia Current Visit: Yes Status: Chronic (6) shizophrenia Current Visit: Yes Status: Suspected (7) Positive PPD, treated Current Visit: Yes Status: Resolved (8) Alcohol dependence Current Visit: No Status: Active (9) syncope alcohol related Current Visit: No Status: Active - AMA Did Patient Leave Against Medical Advice: Yes
[2016-10-05] MEDS ORDERED: chlordiazePOXIDE HCL 10 MG CAPSULE PO SCH (23:00)
== END 2016-10-05 10:38 | disposition left against medical advice (07) | DRG 894 ==
LOC: YASAS 12:42 → Y6N 20:46
PROVIDERS: ADMIT Internal Medicine; ATTEND Internal Medicine
PROC: HZ2ZZZZ Detoxification Services for Substance Abuse Treatment (ICD-10-PCS; principal; 2016-10-02)
DX: F10.230 Alcohol dependence with withdrawal, uncomplicated (principal); F20.0 Paranoid schizophrenia; F12.20 Cannabis dependence, uncomplicated; F17.210 Nicotine dependence, cigarettes, uncomplicated; R76.11 Nonspecific reaction to tuberculin skin test without active tuberculosis; Z87.898 Personal history of other specified conditions; Z87.438 Personal history of other diseases of male genital organs; Z86.79 Personal history of other diseases of the circulatory system
CPT/HCPCS: 36415; 80053; 81003; 85027; 86593; 93005; 93010